=== PATIENT | female | born 1950 | race Caucasian/White ===

== ENCOUNTER → 2017-08-16 | Outpatient (CLI) | payer MEDICARE, BC ==
[~2017-08-16] MED LIST: ALLOPURINOL 10100 M1 PO; ASPIRIN81 M2 PO; CALCITRATE200 MG PO; DIOVAN 80 MG TA80 M1 PO; FARXIGA5 MG PO; GUMMI BEAR MUL1 EAC1 PO; LANTUS100 UNIT/M SUBQ; LEVOTHYROXINE0.05 MG PO; LIPITOR 20 MG T20 M1 PO; OMEGA-31000 M1; VITAMIN B-12500 MCG PO; VITAMIN D2000 UNIT PO; ZEMPLAR1 MCG PO
== END ==
LOC: M.RAD 08-06 12:22
DX: Z12.31 Encounter for screening mammogram for malignant neoplasm of breast (principal); Z13.820 Encounter for screening for osteoporosis; Z78.0 Asymptomatic menopausal state; E11.21 Type 2 diabetes mellitus with diabetic nephropathy; E11.319 Type 2 diabetes mellitus with unspecified diabetic retinopathy without macular edema; E11.49 Type 2 diabetes mellitus with other diabetic neurological complication; I89.0 Lymphedema, not elsewhere classified; I87.2 Venous insufficiency (chronic) (peripheral)

== ENCOUNTER → 2017-08-18 | Outpatient (CLI) | payer MEDICARE, BC | LOC: M.ULTRA 09:29 | DX: N63.10 Unspecified lump in the right breast, unspecified quadrant (principal); E11.21 Type 2 diabetes mellitus with diabetic nephropathy; E11.319 Type 2 diabetes mellitus with unspecified diabetic retinopathy without macular edema; E11.49 Type 2 diabetes mellitus with other diabetic neurological complication; I89.1 Lymphangitis; I87.2 Venous insufficiency (chronic) (peripheral); M10.9 Gout, unspecified ==

== ENCOUNTER → 2018-02-10 | Outpatient (CLI) | payer MEDICARE, BC | LOC: M.ULTRA 08:40 | DX: R92.8 Other abnormal and inconclusive findings on diagnostic imaging of breast (principal) ==

== ENCOUNTER → 2018-02-10 | Outpatient (CLI) | payer OTHER | LOC: M.CT 08:33 | DX: Z13.6 Encounter for screening for cardiovascular disorders (principal) ==

== ENCOUNTER → 2018-08-23 | Outpatient (CLI) | payer MEDICARE, BC | LOC: M.RAD 08:58 | DX: Z12.31 Encounter for screening mammogram for malignant neoplasm of breast (principal) ==

== ENCOUNTER 2020-06-13 13:12 | Inpatient (IN) | payer MEDICARE, BC ==
[~2020-06-13] VITALS: Ht 172.7 cm; Wt 158.8 kg
[~2020-06-13 13:12] MED LIST changes: +ASPIRIN EC81 M1 PO; -ASPIRIN81 M2 PO
[2020-06-13 13:15] VITALS: BP 168/93
[2020-06-13] MEDS ORDERED: BENICAR40 MG PO (13:27)
[2020-06-13] MEDS ORDERED: TOPROL XL50 MG (13:27)
[2020-06-13] MEDS ORDERED: ACTIVE-Q200 MG PO (13:28)
[2020-06-13 14:40] LABS: ABSOLUTE BASOPHILS 0.1 thou/uL (0.0-0.2); ABSOLUTE LYMPHOCYTES 1.1 thou/uL (0.8-5.3); ABSOLUTE MONOCYTES 1.5 thou/uL (0.0-1.2); ABSOLUTE NEUTROPHILS 10.3 thou/uL (1.6-8.1); BASOPHILS 0.7 %; EOSINOPHILS 0.1 %; HEMATOCRIT 42.4 % (37.0-47.0); HEMOGLOBIN 13.2 gm/dL (12.0-15.0); LYMPHOCYTES 8.5 %; MCH 28.1 pg (26.0-34.0); MCHC 31.3 g/dL (28.0-37.0); MCV 89.8 fL (80.0-100.0); MONOCYTES 11.3 %; MPV 8.7 fl. (7.2-11.1); NUCLEATED RBCS 0 /100WBC; PLATELET COUNT* 214 thou/uL (150-400); POLYS 79.4 %; RBC 4.72 mil/uL (4.20-5.00); RDW-CV 15.3 % (10.5-14.5)
[2020-06-13 14:46] LABS: INFLUENZA A ANTIGEN Negative (Negative); INFLUENZA B ANTIGEN Negative (Negative)
[2020-06-13 14:51] LABS: CALCIUM 8.9 mg/dL (8.5-10.1); CREATININE 1.4 mg/dL (0.6-1.3); POTASSIUM 5.2 mmol/L (3.5-5.1)
[2020-06-13 14:55] LABS: APTT 24.9 Seconds (25.0-31.3); INR 1.1; PROTIME 11.9 Seconds (9.20-11.50)
[2020-06-13 15:05] LABS: ALBUMIN 3.2 g/dL (3.4-5.0); CK-MB MASS 4.1 ng/mL (<0.5-3.6); MAGNESIUM 1.3 mg/dL (1.8-2.4); TOTAL BILIRUBIN 0.8 mg/dL (<0.1-1.0); TOTAL PROTEIN 8.3 g/dL (6.4-8.2)
[2020-06-13 16:44] LABS: CHOLESTEROL 148 mg/dL (<200); HDL CHOLESTEROL 59 mg/dL (>40); LDL CHOLESTEROL 80 mg/dL (<100); TC:HDL 2.5 Ratio (Not establshd); TRIGLYCERIDE 48 mg/dL (<150); VLDL 10 mg/dL (<40)
[2020-06-13 16:49] LABS: SERUM ASSESSMENT CLEAR
[2020-06-13 22:00] VITALS: BP 127/59
[2020-06-13 22:41] VITALS: BP 144/66
[2020-06-14] VITALS (10 sets, daily range): BP systolic 98–122; BP diastolic 42–68
[2020-06-14 04:48] LABS: HEMATOCRIT 41.4 % (37.0-47.0); HEMOGLOBIN 12.7 gm/dL (12.0-15.0); MCH 27.7 pg (26.0-34.0); MCHC 30.7 g/dL (28.0-37.0); MCV 90.3 fL (80.0-100.0); RBC 4.59 mil/uL (4.20-5.00); RDW-CV 15.5 % (10.5-14.5)
[2020-06-14 05:00] LABS: CALCIUM 9.2 mg/dL (8.5-10.1); CREATININE 1.6 mg/dL (0.6-1.3); POTASSIUM 4.8 mmol/L (3.5-5.1)
--- NOTE | 2020-06-14 10:58 | EKG ---
[place] [address] ELECTROCARDIOGRAM REPORT Name: ELIZABETH LYNN Room: [address] ADM IN M.R.#: [id number] Admission: 06/13/20 Attend Phys: Maria Isabel Miller, Discharge: Date of : 54 Date of Service: 06/13/20 1321 Report #: [id number] THIS REPORT FOR: //name// [facility] ED Test Date: 2020-06-13 Test Time: 13:21:36 Pat Name: ELIZABETH LYNN Department: Room: [facility] Gender: F Service Coordinator Elderly Facility: DSL : 1950 Requested By: Dudley Gilbert Order Number: [id number] MD: Wale Thomas Measurements Intervals [place] Rate: 114 P: ND: QRS: -17 QRSD: 76 T: 37 QT: 309 QTc: 426 Interpretive Statements Atrial fibrillation Borderline left axis deviation Low voltage, precordial leads Compared to ECG 11/07/2014 11:33:02 Low QRS voltage now present ST (T wave) deviation now present Sinus rhythm no longer present Electronically Signed On 06-14-2020 10:58:20 SKIVER MACHINE by Wale Thomas [email or web address] <ELECTRONICALLY SIGNED> By: Wale Thomas MD, FACC 06/14/20 1058 1321 1321 Wale Thomas MD, FACC /EPI
--- NOTE | 2020-06-14 16:54 | CARD ---
[address] [address] CARDIAC CATH REPORT Name: ELIZABETH LYNN Room: [address] IN [facility]#: [id number] Admission: 06/13/20 Attend Phys: Maria Isabel Miller MD Discharge: Date of : 54 Report #: [id number] THIS REPORT FOR: //name// cc: Lien Eagle MD, Diane S. MD ~ APPROVED REPORT Study performed: 06/14/2020 08:48:50 Patient Details Patient Status: In-Patient Room #: The patient is a 70 year-old female Event Personnel Sudheer Romero RTR Monitor, Zohreh Sanchez RTR William Mancini David Tie Hacker, Fouzia Massey desktop support consultant Performed Right radial artery access, Left Heart Cath w/or w/o Coronaries LHC, Hemostasis with Hemoband Indication Non-STEMI , Atrial fibrillation, Chest pain Risk Factors Obesity, Diabetes Admission/Lab Medications/Medications given during procedure Heparin Unfract., Heparin IV 3000 units, Nitroglycerin IA 400 mcg, Verapamil IA 5 mg Procedure Narrative The patient was brought electively to the Cardiac Catheterization Laboratory and was prepped and draped in a sterile manner. The right wrist was infiltrated with 2% Lidocaine subcutaneous anesthesia. A 6F Slender Delmar sheath was inserted into the right radial artery. Coronary angiography was performed using coronary diagnostic catheters. The right coronary system was accessed and visualized with a JR4 6Fr catheter. The left coronary system was accessed and visualized with a JL4 6Fr catheter. The left ventricle was accessed and visualized with a Angled Pigtail 6Fr catheter. Left ventricular/Aortic Valve gradient assessed via catheter pullback. Left ventriculogram was performed in ART projection. Closure device was deployed with a 6 Fr Vasc band. The patient tolerated the procedure well and there were no [place] [address] CARDIAC CATH REPORT Name: ELIZABETH LYNN Room: [address] IN [facility]#: [id number] Admission: 06/13/20 Attend Phys: Maria Isabel Miller MD Discharge: Date of : 54 Report #: [id number] procedure. There was no hematoma. Intraoperative Conscious Sedation Sedation start time: 09:47 Case end Time: 10:12 No sedation given. Fluoro Time: 3.9 minutes Dose: DAP 90927 cGycm2 957.90 mGy Contrast Type and Amount: Visipaque 100 ml Coronary Angiography The patient's coronary anatomy is co- dominant. [place] Artery Percent Stenosis Left Main: 0 % Prox LAD: 0 % Mid/Distal LAD: 0 % Circumflex: 0 % RCA: 30 % Ramus: % Left Ventriculography The left ventricular ejection fraction is estimated to be 40-45%. Left ventricular wall motion abnormalities are present. There is no mitral insufficiency. severe hypokinesis noted of the distal anterolateral wall and apex Hemodynamics The aortic pressure is 147/60 mmHg with a mean of 99 mmHg. The left ventricular pressure is 137/11 mmHg with a mean of mmHg. The left ventricular end diastolic pressure is 20 mmHg. There was no gradient across the aortic valve upon pullback. Pullback from the left ventricle to the aorta revealed no gradient across the aortic valve. Conclusion 1. nonsignificant CAD 2. 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
[2020-06-15 04:44] VITALS: BP 103/58
[2020-06-15 08:00] VITALS: BP 99/55
[2020-06-15 13:06] VITALS: BP 106/55
[2020-06-15 16:40] VITALS: BP 93/39
[2020-06-15 19:27] LABS: CALCIUM 8.9 mg/dL (8.5-10.1); CREATININE 2.2 mg/dL (0.6-1.3); POTASSIUM 4.4 mmol/L (3.5-5.1)
[2020-06-15 20:00] VITALS: BP 101/48
[2020-06-16] VITALS: BP 115/45
[2020-06-16 04:00] VITALS: BP 119/43
[2020-06-16 05:27] LABS: HEMATOCRIT 36.5 % (37.0-47.0); HEMOGLOBIN 11.1 gm/dL (12.0-15.0); MCH 27.3 pg (26.0-34.0); MCHC 30.3 g/dL (28.0-37.0); MCV 90.1 fL (80.0-100.0); MPV 9.4 fl. (7.2-11.1); RBC 4.05 mil/uL (4.20-5.00); RDW-CV 15.7 % (10.5-14.5)
[2020-06-16 05:45] LABS: ALBUMIN 2.5 g/dL (3.4-5.0); CALCIUM 8.6 mg/dL (8.5-10.1); CREATININE 2.3 mg/dL (0.6-1.3); MAGNESIUM 2.5 mg/dL (1.8-2.4); POTASSIUM 4.6 mmol/L (3.5-5.1); TOTAL BILIRUBIN 0.4 mg/dL (<0.1-1.0); TOTAL PROTEIN 7.1 g/dL (6.4-8.2)
[2020-06-16 08:00] VITALS: BP 105/54
[2020-06-16 13:31] VITALS: BP 88/40
--- NOTE | 2020-06-16 14:04 | EKG ---
[place] [address] ELECTROCARDIOGRAM REPORT Name: ELIZABETH LYNN Room: [address] IN M.R.#: [id number] Admission: 06/13/20 Attend Phys: Maria Isabel Miller, Discharge: Date of : 54 Date of Service: 06/15/20 0622 Report #: [id number] THIS REPORT FOR: //name// [facility] Test Date: 2020-06-15 Test Time: 06:22:15 Pat Name: ELIZABETH LYNN Department: Room: [address] Gender: F Assembler Watch Train: [email or web address] : 1950 Requested By: Wale Thomas Order Number: [id number] Ashley MD: Piero Corley Measurements Intervals [place] Rate: 72 P: WI: QRS: 11 QRSD: 102 T: 23 QT: 393 QTc: 431 Interpretive Statements Atrial fibrillation Low voltage, extremity and precordial leads Borderline ST elevation, lateral leads Compared to ECG 06/13/2020 13:21:36 ST (T wave) deviation now present Electronically Signed On 06-16-2020 14:03:57 WINDSURFING INSTRUCTOR by Piero Corley [email or web address] <ELECTRONICALLY SIGNED> By: Piero Corley MD, FACC 06/16/20 1403 1 Piero Corley MD, FAC /EPI
[2020-06-16 16:00] VITALS: BP 92/40
[2020-06-16 20:00] VITALS: BP 108/40
[2020-06-17] VITALS: BP 101/35
[2020-06-17 03:45] VITALS: BP 90/41
[2020-06-17 08:00] VITALS: BP 105/49
[2020-06-17 11:21] LABS: HEMATOCRIT 36.8 % (37.0-47.0); HEMOGLOBIN 11.5 gm/dL (12.0-15.0); MCH 28.3 pg (26.0-34.0); MCHC 31.4 g/dL (28.0-37.0); MPV 9.5 fl. (7.2-11.1); RBC 4.08 mil/uL (4.20-5.00); RDW-CV 15.6 % (10.5-14.5)
[2020-06-17 11:33] LABS: ALBUMIN 2.6 g/dL (3.4-5.0); CALCIUM 8.5 mg/dL (8.5-10.1); CREATININE 2.7 mg/dL (0.6-1.3); MAGNESIUM 2.5 mg/dL (1.8-2.4); POTASSIUM 4.8 mmol/L (3.5-5.1); TOTAL BILIRUBIN 0.4 mg/dL (<0.1-1.0); TOTAL PROTEIN 7.4 g/dL (6.4-8.2)
[2020-06-17] MEDS ORDERED: ELIQUIS5 MG PO (11:41)
[2020-06-17 12:00] VITALS: BP 88/32
--- NOTE | 2020-06-17 14:46 | 2DMMODE ---
[place] [address] 2 D/M-MODE ECHOCARDIOGRAM Name: ELIZABETH LYNN Room: [address] IN [facility]#: [id number] Admission: 06/13/20 Attend Phys: Maria Isabel Miller, Discharge: Date of : 54 Date of Service: 06/17/20 1445 Report #: [id number] THIS REPORT FOR: cc: Lien Eagle MD, Diane S. MD Holkins,Omid Whitt MD [facility] ~ APPROVED REPORT Study performed: 06/17/2020 09:58:20 EXAM: Comprehensive 2D, Doppler, and color-flow Echocardiogram Patient Location: In-Patient Room #: [facility] Status: routine BSA: 2.67 HR: 87 bpm BP: 90/41 mmHg Rhythm: Atrial Fibrillation Other Information Study Quality: Good Indications Atrial Fibrillation Non STEMI 2D Dimensions IVSd: 11.12 (7-11mm) LVOT Diam: 19.99 (18-24mm) LVDd: 54.93 mm PWd: 10.94 (7-11mm) Ascending Ao: 33.28 (22-36mm) LVDs: 28.70 (25-40mm) Aortic Root: 28.89 mm Volumes Left Atrial Volume (Systole) LA ESV Index: 30.80 mL/m2 Aortic Valve AoV Peak Saji.: 1.53 m/s AO Peak Gr.: 9.41 mmHg LVOT Max P.19 mmHg AO Mean Gr.: 5.12 mmHg LVOT Mean P.98 mmHg LVOT Max V: 1.14 m/s AO V2 VTI: 33.22 cm LVOT Mean V: 0.81 m/s DANELLE (VTI): 2.57 cm2 LVOT V1 VTI: 27.19 [place] [address] 2 D/M-MODE ECHOCARDIOGRAM Name: ELIZABETH LYNN Room: [address] IN ..#: [id number] Admission: 06/13/20 Attend Phys: Maria Isabel Miller, Discharge: Date of : 54 Date of Service: 06/17/20 1445 Report #: [id number] Mitral Valve MV Decel. Time: 192.64 ms MV PHT: 55.86 ms MVA (PHT): 3.94 cm2 TDI Medial E' Saji.: 0.12 m/s Lateral E' Saji.: 0.14 m/s Pulmonary Valve PV Peak Saji.: 1.12 m/s PV Peak Gr.: 5.00 mmHg Tricuspid Valve RAP Estimate: 5.00 mmHg TR Peak Gr.: 38.35 mmHg RVSP: 43.00 mmHg PA Pressure: 43.00 mmHg Left Ventricle The left ventricle is normal size. There is normal LV segmental wall motion. There is normal left ventricular wall thickness. Left ventricular systolic function is normal. The left ventricular ejection fraction is within the normal range. LVEF is 55-60%. This study is not technically sufficient to allow evaluation of the LV diastolic function due to atrial fibrillation. Right Ventricle The right ventricle is normal size. The right ventricular systolic function is normal. Atria The left atrium size is normal. The right atrium size is normal. Aortic Valve The aortic valve is normal in structure. No aortic regurgitation is present. There is no aortic valvular stenosis. Mitral Valve Mild mitral annular calcification. Trace mitral regurgitation. No evidence of mitral valve stenosis. Tricuspid Valve The tricuspid valve is normal in structure. Mild tricuspid regurgitation [place] [address] 2 D/M-MODE ECHOCARDIOGRAM Name: ELIZABETH LYNN Room: [address]#: [id number] Admission: 06/13/20 Attend Phys: Maria Isabel Miller, Discharge: Date of : 54 Date of Service: 06/17/20 1445 Report #: [id number] Pulmonic Valve The pulmonary valve is normal in structure. Mild pulmonic regurgitation. Great Vessels The aortic root is normal in size. IVC is normal in size and collapses >50% with inspiration. Pericardium There is no pericardial effusion. <Conclusion> There is normal left ventricular wall thickness. Left ventricular systolic function is normal. The left ventricular ejection fraction is within the normal range. LVEF is 55-60%. This study is not technically sufficient to allow evaluation of the LV diastolic function due to atrial fibrillation. The right ventricle is normal size. The left atrium size is normal. The aortic valve is normal in structure. Mild mitral annular calcification. The tricuspid valve is normal in structure. Mild tricuspid regurgitation Mild pulmonary hypertension. IVC is normal in size and collapses >50% with inspiration. There is no pericardial effusion. There is normal LV segmental wall motion. <ELECTRONICALLY SIGNED> By: Omid Celis MD, FACC 06/17/20 1445 1445 1445 Omid Celis MD, FACC /INF
[2020-06-17 16:00] VITALS: BP 87/52
[2020-06-17 20:00] VITALS: BP 97/49
[2020-06-18] VITALS (7 sets, daily range): BP systolic 80–109; BP diastolic 24–54
[2020-06-18 04:40] LABS: ABSOLUTE BASOPHILS 0.1 thou/uL (0.0-0.2); ABSOLUTE EOSINOPHILS 0.3 thou/uL (0.0-0.7); ABSOLUTE LYMPHOCYTES 1.5 thou/uL (0.8-5.3); ABSOLUTE NEUTROPHILS 4.4 thou/uL (1.6-8.1); BASOPHILS 0.8 %; EOSINOPHILS 3.5 %; HEMATOCRIT 36.7 % (37.0-47.0); HEMOGLOBIN 11.2 gm/dL (12.0-15.0); LYMPHOCYTES 20.5 %; MCH 27.5 pg (26.0-34.0); MCHC 30.5 g/dL (28.0-37.0); MCV 89.9 fL (80.0-100.0); MONOCYTES 13.9 %; MPV 9.1 fl. (7.2-11.1); NUCLEATED RBCS 0 /100WBC; PLATELET COUNT* 214 thou/uL (150-400); POLYS 61.3 %; RBC 4.09 mil/uL (4.20-5.00); RDW-CV 15.6 % (10.5-14.5); WBC 7.2 thou/uL (4.0-11.0)
[2020-06-18 04:47] LABS: ALBUMIN 2.7 g/dL (3.4-5.0); CALCIUM 8.9 mg/dL (8.5-10.1); CREATININE 2.7 mg/dL (0.6-1.3); POTASSIUM 4.5 mmol/L (3.5-5.1); TOTAL BILIRUBIN 0.4 mg/dL (<0.1-1.0); TOTAL PROTEIN 7.2 g/dL (6.4-8.2)
--- NOTE | 2020-06-18 08:51 | CON ---
[address] [address] CONSULTATION Name: ELIZABETH LYNN Room: [address] IN .R.#: [id number] Admission: 06/13/20 Attend Phys: Maria Isabel Miller MD Discharge: Date of : 54 Report #: [id number] THIS REPORT FOR: //name// cc: Lien Eagle MD, Diane S. MD ~ CARDIOLOGY CONSULTATION INDICATION: Non-ST elevation myocardial infarction and atrial fibrillation. HISTORY OF PRESENT ILLNESS: The patient is a 70-year-old white female who was admitted to the hospital with complaints of chest discomfort that was fairly focal to the left substernal area, lasting several hours, early this morning. The pain has essentially resolved, although she has some residual numbness in the area. She had some shortness of breath with the episode. She states that it hurt worse to take a deep breath. There was no diaphoresis or nausea. There was no radiation of the discomfort. A 12-lead EKG shows atrial fibrillation with a rapid ventricular response rate. I do not appreciate acute ST segment abnormalities. She has no history of coronary artery disease or prior significant cardiac issues. She has chronic lower extremity lymphedema. There is no history of atrial fibrillation. PAST MEDICAL HISTORY: 1. Type 2 diabetes mellitus. 2. Hypertension. 3. Chronic lower extremity lymphedema. 4. Chronic renal insufficiency. HOME MEDICATIONS: Lantus dose unknown daily, atorvastatin 20 mg at bedtime, allopurinol 100 mg daily, vitamin B12 500 mcg daily, aspirin 81 mg daily, Benicar 40 mg daily, Toprol-XL 50 mg b.i.d., CoQ10 200 mg daily, calcium citrate 200 mg daily, vitamin D3 2000 units daily, omega 3 fatty acids 1000 mg daily, multivitamin 1 tablet daily. ALLERGIES: None documented. SOCIAL HISTORY: The patient does not smoke. She does not drink alcohol. FAMILY HISTORY: Noncontributory. REVIEW OF SYSTEMS: As per HPI, otherwise, unremarkable. PHYSICAL EXAMINATION: VITAL SIGNS: Blood pressure 168/93, pulse is irregular and in the low 100s. GENERAL: This is a moderately obese, pleasant white female, in no distress[place] [address] CONSULTATION Name: RUEL DAELIZABETH Deena Room: [address] IN [facility]#: [id number] Admission: 06/13/20 Attend Phys: Maria Isabel Miller MD Discharge: Date of : 54 Report #: [id number] HEENT: Extraocular muscles intact. Mucous membranes are moist. NECK: Shows a thick neck without obvious jugular venous distention. CARDIAC: Reveals an irregularly irregular rhythm that is mildly tachycardic. I do not appreciate gallop or murmur. ABDOMEN: Reveals normal bowel sounds. The abdomen is soft and nontender. EXTREMITIES: Shows 4+ edema bilaterally consistent with lymphedema. LABORATORY DATA: Reviewed. Sodium 140, potassium 5.2, chloride 105, bicarbonate 28, BUN 30, creatinine 1.4, serum glucose 183. LFTs are within normal limits with the exception of a minimally elevated alkaline phosphatase at 138. Initial troponin was 4.86. Followup troponins are pending. NT-proBNP is mildly elevated at 2532. Coags are essentially within normal limits. White blood cell count 13, hemoglobin 13.2, platelet count 214,000. Rapid COVID test negative. Chest x-ray showed no acute cardiopulmonary abnormality. IMPRESSION AND RECOMMENDATIONS: 1. Atrial fibrillation, onset unknown. The patient does not have any symptoms with this. She is presently on a heparin drip. We will transition to oral anticoagulation. Would be in favor of starting antiarrhythmic in an effort to convert to sinus if possible. Echocardiogram will be ordered and is pending. 2. Moderately elevated troponin consistent with non-ST elevation myocardial infarction. We will plan for left heart catheterization with coronary angiography. Holding anticoagulation until this is achieved, 3. Hypertension. We will adjust the patient's home medications and consider additional medications as needed. 4. Diabetes, per primary physician. 5. Chronic renal insufficiency, appears stable at this point in time. 6. Lymphedema. The patient treats with compression devices at home on a daily basis. <ELECTRONICALLY SIGNED> By: Piero Corley MD, FACC 06/18/20 0851 1621 1642[facility] Corley MD, FACC /nt
--- NOTE | 2020-06-18 12:05 | CON ---
[address] [address] CONSULTATION Name: ELIZABETH LYNN Room: [address] IN .R.#: [id number] Admission: 06/13/20 Attend Phys: Maria Isabel Miller MD Discharge: Date of : 54 Report #: [id number] THIS REPORT FOR: //name// cc: Lien Eagle MD, Diane S. MD ~ DATE OF SERVICE: 06/17/2020 REQUESTING PHYSICIAN: Dr. Valenzuela. REASON FOR CONSULTATION: Acute kidney injury. HISTORY OF PRESENT ILLNESS: The patient is a 70-year-old female with medical history significant for chronic kidney disease stage 3, follows with my partner, Dr. Szymanski, she also has morbid obesity, hypertension, coronary artery disease, atrial fibrillation and diabetes. She was admitted on 06/13/2020 with chest pain, underwent cardiac catheterization on 06/13/2020. She had a nonsignificant coronary artery disease and from the cardiac standpoint, she was doing better. Her creatinine went up from 1.4-2.7 today and I was consulted. SOCIAL HISTORY: No tobacco or alcohol abuse. FAMILY HISTORY: Noncontributory. MEDICATIONS: Reviewed. REVIEW OF SYSTEMS: She feels good today and she wanted to go home and disappointed that she has to stay in the hospital. PHYSICAL EXAMINATION: GENERAL: Awake, alert, oriented. VITAL SIGNS: Blood pressure 105/49, heart rate 68, and temperature is 36.3. HEENT: Pupils are round. NECK: Fatty. LUNGS: Decreased air movements. CARDIOVASCULAR: Irregular rate. ABDOMEN: Obese. EXTREMITIES: Lower extremities with chronic lymphedema bilaterally. ASSESSMENT: 1. Acute kidney injury, combination of exposure to contrast, although contrast was a very minimal amount and the patient is actually hypotensive. She used to have a blood pressure above 140 and blood pressure around 100 is too low for her. 2. Coronary artery disease, status post ltj-MX-elbjvolyw myocardial infarction. 3. Morbid obesity. 4. [place] [address] CONSULTATION Name: ELIZABETH LYNN Room: [address] IN ..#: [id number] Admission: 06/13/20 Attend Phys: Maria Isabel Miller MD Discharge: Date of : 54 Report #: [id number] 5. History of hypertension. 6. ____. 7. Atrial fibrillation. 8. Diabetes mellitus type 2. PLAN: Discussed with Dr. Corley, scrap kettle tender. I would like to keep her blood pressure a little higher ____ for her will be somewhere around 130 mmHg over 80. We will follow labs. <ELECTRONICALLY SIGNED> By: Ronnie Templeton MD 06/18/20 1205 1234 0004Alexaalan Templeton MD /SONNY
[2020-06-19] VITALS (9 sets, daily range): BP systolic 80–128; BP diastolic 37–70
[2020-06-19 05:19] LABS: ALBUMIN 2.6 g/dL (3.4-5.0); CALCIUM 8.7 mg/dL (8.5-10.1); CREATININE 2.4 mg/dL (0.6-1.3); POTASSIUM 4.6 mmol/L (3.5-5.1); TOTAL BILIRUBIN 0.3 mg/dL (<0.1-1.0); TOTAL PROTEIN 7.2 g/dL (6.4-8.2)
[2020-06-19] MEDS ORDERED: PACERONE 200 M200 M1 PO ×2 (17:15→17:25)
[2020-06-20] VITALS (8 sets, daily range): BP systolic 99–119; BP diastolic 42–68
[2020-06-20 09:46] LABS: CALCIUM 8.5 mg/dL (8.5-10.1); CREATININE 1.9 mg/dL (0.6-1.3); POTASSIUM 5.1 mmol/L (3.5-5.1)
[2020-06-20] MEDS ORDERED: PACERONE 200 M200 M1 PO (11:44)
== END 2020-06-20 16:10 | disposition home health service (06) | DRG 280 ==
LOC: M.ERS 13:12 → M.2W 15:31 → M.TBA-ER 15:31 → M.2W 21:46
PROVIDERS: Family Medicine; Internal Medicine; Internal Medicine Cardiovascular Disease; Internal Medicine Nephrology; ADMIT Internal Medicine; ATTEND Internal Medicine
PROC: B215YZZ Fluoroscopy of Left Heart using Other Contrast (ICD-10-PCS; principal; 2020-06-14)
PROC: 4A023N7 Measurement of Cardiac Sampling and Pressure, Left Heart, Percutaneous Approach (ICD-10-PCS; principal; 2020-06-14)
PROC: B211YZZ Fluoroscopy of Multiple Coronary Arteries using Other Contrast (ICD-10-PCS; principal; 2020-06-14)
DX: I21.4 Non-ST elevation (NSTEMI) myocardial infarction (principal); J15.6 Pneumonia due to other Gram-negative bacteria; N17.0 Acute kidney failure with tubular necrosis; I50.21 Acute systolic (congestive) heart failure; J96.01 Acute respiratory failure with hypoxia; Z68.43 Body mass index [BMI] 50.0-59.9, adult; I13.0 Hypertensive heart and chronic kidney disease with heart failure and stage 1 through stage 4 chronic kidney disease, or unspecified chronic kidney disease; Z20.828 Contact with and (suspected) exposure to other viral communicable diseases; M19.90 Unspecified osteoarthritis, unspecified site; N18.30 Chronic kidney disease, stage 3 unspecified; E78.5 Hyperlipidemia, unspecified; I48.91 Unspecified atrial fibrillation; E11.22 Type 2 diabetes mellitus with diabetic chronic kidney disease; I89.0 Lymphedema, not elsewhere classified; I25.10 Atherosclerotic heart disease of native coronary artery without angina pectoris; E66.01 Morbid (severe) obesity due to excess calories; I87.8 Other specified disorders of veins; I95.9 Hypotension, unspecified; T50.8X5A Adverse effect of diagnostic agents, initial encounter; Y92.89 Other specified places as the place of occurrence of the external cause; Z79.899 Other long term (current) drug therapy

== ENCOUNTER → 2020-07-30 | Outpatient (CLI) | payer MEDICARE, BC ==
[2020-07-30] VITALS (7 sets, daily range): BP systolic 121–157; BP diastolic 48–77
[~2020-07-30] MED LIST changes: +ACTIVE-Q200 MG PO; +BENICAR40 MG PO; +ELIQUIS5 MG PO; +PACERONE 200 M200 M1 PO; +TOPROL XL50 MG
[2020-07-30 11:29] LABS: HEMATOCRIT 38.7 % (37.0-47.0); HEMOGLOBIN 12.1 gm/dL (12.0-15.0); MCH 28.1 pg (26.0-34.0); MCHC 31.1 g/dL (28.0-37.0); MCV 90.1 fL (80.0-100.0); MPV 9.6 fl. (7.2-11.1); RBC 4.3 mil/uL (4.20-5.00); RDW-CV 18.5 % (10.5-14.5); WBC 5.9 thou/uL (4.0-11.0)
[2020-07-30 11:54] LABS: CREATININE 1.4 mg/dL (0.6-1.3)
[2020-07-30 11:59] LABS: ALBUMIN 3.4 g/dL (3.4-5.0); TOTAL BILIRUBIN 0.8 mg/dL (<0.1-1.0); TOTAL PROTEIN 7.4 g/dL (6.4-8.2)
--- NOTE | 2020-07-30 15:22 | EKG ---
[place] [address] ELECTROCARDIOGRAM REPORT Name: ELIZABETH LYNN Room: [facility]#: [id number] Admission: 07/30/20 Attend Phys: Piero Corley, Discharge: Date of : 54 Date of Service: 07/30/20 1105 Report #: [id number] THIS REPORT FOR: //name// [facility] Test Date: 2020-07-30 Test Time: 11:05:56 Pat Name: ELIZABETH LYNN Department: Room: Gender: F Woodwind Instruments Inspector: : 1950 Requested By: Piero Corley Order Number: [id number] Ashley MD: Wale Thomas Measurements Intervals [place] Rate: 77 P: IN: QRS: -6 QRSD: 117 T: 36 QT: 379 QTc: 429 Interpretive Statements Atrial fibrillation Nonspecific intraventricular conduction delay Low voltage, precordial leads Compared to ECG 06/15/2020 06:22:15 ST (T wave) deviation no longer present Electronically Signed On 07-30-2020 15:22:11 SORTER UPHOLSTERY PARTS by Wale Thomas [email or web address] <ELECTRONICALLY SIGNED> By: Wale Thomas MD, [facility] 07/30/20 1522 1105 1105 Wale Thomas MD, [facility] /EPI
--- NOTE | 2020-07-31 10:15 | CARD ---
[address] [address] CARDIAC CATH REPORT Name: LYNNELIZABETH Shaffer Room: [facility]#: [id number] Admission: 07/30/20 Attend Phys: Piero Corley MD Discharge: Date of : 54 Report #: [id number] THIS REPORT FOR: cc: Lien Eagle MD, Diane S. MD ~ Piero Corley MD [facility] DATE OF SERVICE: 07/30/2020 PROCEDURE: DC cardioversion. INDICATION: Persistent atrial fibrillation. DESCRIPTION OF PROCEDURE: After informed consent was obtained, the patient was brought to the cardiac holding area. The patient was given intravenous Versed and fentanyl for conscious sedation. The patient received a total of 4 mg of Versed and 100 mg of fentanyl. Once the patient was adequately sedated, she received a single biphasic shock of 300 joules, which failed to convert her from atrial fibrillation. She remains in atrial fibrillation. She received a second biphasic shock of 360 joules converting from atrial fibrillation to normal sinus rhythm. The patient tolerated the procedure well without complication. She was discharged to home in stable condition. IMPRESSION: 1. Persistent atrial fibrillation. 2. Successful direct current cardioversion to normal sinus rhythm. <ELECTRONICALLY SIGNED> By: Piero Corley MD, [facility] 07/31/20 [address] [place] [address] Demi Corley MD, FACC /nt
== END | disposition home or self-care (01) ==
LOC: M.CL 10:20
PROVIDERS: ATTEND Internal Medicine Cardiovascular Disease
DX: I48.19 Other persistent atrial fibrillation (principal); I25.2 Old myocardial infarction; Z98.890 Other specified postprocedural states; Z79.899 Other long term (current) drug therapy; Z79.01 Long term (current) use of anticoagulants

== ENCOUNTER 2020-08-12 14:40 | Inpatient (IN) | payer MEDICARE, BC ==
[~2020-08-12] VITALS: Ht 172.7 cm; Wt 170.6 kg
[2020-08-12 14:53] VITALS: BP 132/39
[2020-08-12] MEDS ORDERED: SPIRONOLACTONE50 MG PO (14:58)
[2020-08-12 15:29] LABS: CALCIUM 9.7 mg/dL (8.5-10.1); CREATININE 1.6 mg/dL (0.6-1.3); POTASSIUM 5.2 mmol/L (3.5-5.1)
[2020-08-12 15:30] LABS: ABSOLUTE BASOPHILS 0.1 thou/uL (0.0-0.2); ABSOLUTE EOSINOPHILS 0.2 thou/uL (0.0-0.7); ABSOLUTE LYMPHOCYTES 1.2 thou/uL (0.8-5.3); ABSOLUTE MONOCYTES 0.7 thou/uL (0.0-1.2); ABSOLUTE NEUTROPHILS 3.2 thou/uL (1.6-8.1); BASOPHILS 1.3 %; EOSINOPHILS 3.4 %; HEMATOCRIT 38.2 % (37.0-47.0); HEMOGLOBIN 11.9 gm/dL (12.0-15.0); LYMPHOCYTES 22.1 %; MCH 27.9 pg (26.0-34.0); MCV 89.9 fL (80.0-100.0); MONOCYTES 12.9 %; MPV 9.7 fl. (7.2-11.1); NUCLEATED RBCS 0 /100WBC; PLATELET COUNT* 196 thou/uL (150-400); POLYS 60.3 %; RBC 4.25 mil/uL (4.20-5.00); RDW-CV 18.6 % (10.5-14.5); WBC 5.3 thou/uL (4.0-11.0)
[2020-08-12 15:32] LABS: APTT 29.3 Seconds (25.0-31.3); INR 1.2; PROTIME 12.5 Seconds (9.20-11.50)
[2020-08-12 15:40] LABS: ALBUMIN 3.3 g/dL (3.4-5.0); TOTAL BILIRUBIN 0.7 mg/dL (<0.1-1.0); TOTAL PROTEIN 7.6 g/dL (6.4-8.2)
--- NOTE | 2020-08-12 17:01 | EKG ---
[place] [address] ELECTROCARDIOGRAM REPORT Name: ELIZABETH LYNN Room: [place] [address] ADM IN ..#: [id number] Admission: 08/12/20 Attend Phys: Bishop Glez Discharge: Date of : 54 Date of Service: 08/12/20 1453 Report #: [id number] THIS REPORT FOR: //name// [facility] ED Test Date: 2020-08-12 Test Time: 14:53:07 Pat Name: ELIZABETH LYNN Department: Room: [facility] Gender: F Port Engineer: CALIN : 1950 Requested By: Dudley Gilbert Order Number: [id number] MD: Wale Thomas Measurements Intervals [place] Rate: 57 P: 114 WI: 173 QRS: 83 QRSD: 102 T: 40 QT: 406 QTc: 396 Interpretive Statements Sinus bradycardia Low voltage with right axis deviation Compared to ECG 07/30/2020 11:05:56 Right-axis deviation now present Atrial fibrillation no longer present Electronically Signed On 08-12-2020 17:01:02 AWNING FRAME MAKER by Wale Thomas [email or web address] <ELECTRONICALLY SIGNED> By: Wale Thomas MD, [facility] 08/12/20 1701 1453 1453 Wale Thomas MD, [facility] /EPI
[2020-08-12 20:00] VITALS: BP 118/51
[2020-08-13] VITALS (7 sets, daily range): BP systolic 105–186; BP diastolic 43–65
--- NOTE | 2020-08-13 09:44 | NUR ---
CM SPOKE TO THE PT TO DISCUSS CM ASSESSMENT. PT A&O, AND INDEPNDENT WITH ADL'S. PT RESIDES AT HOME WITH HER DTR AND MARILEE. PT USES A CANE FOR MOBILITY. NO OTHER DME. PT IS CURRENTLY ON 3L O2, AND IS CONCERNED THAT SHE MAY NEED OXYGEN AT D/C. PT CURRENTLY ON-SERIVCE WITH SPECIALIZED HOME [facility]ARE (NURSE ONLY), AND PT WILL NEED ORDERS TO RESUME HH AT D/C. CM WILL REMAIN AVAILABLE TO ASSIST AND FOLLOW NEEDED. [facility] PHONE: [phone] FAX: [phone]
[2020-08-13] MEDS ORDERED: NOVOLOG100 UNIT/1 SUBQ (11:21)
--- NOTE | 2020-08-13 14:14 | NUR ---
WOUND NURSE: PATIENT SEEN TO ADDRESS LYMPHEDEMA TO BLE AND BULLA ON LLE MEASURING 3.0 X 4.0 CM. BULLA IS INTACT AND CLEAR FLUID FILLED. PATIENT ALSO WITH NODULAR ERUPTIONS ON BLE, MORE SO ON THE LEFT, AND LOCALIZED REDNESS, NO WARMTH. CLEANSED WIH SOAP AND WATER, RINSED WITH WATER, THEN PATTED DRY. APPLIED XEROFORM GAUZE UNDER 4X4'S, THEN WRAPPED WITH KERLEX ROLL GAUZE UNDER DOMINGO WRAP. PATIENT INSTRUCTED ON MEASURES TO PROMOTE HEALING AND PREVENT COMPLICATIONS WITH GOOD UNDERSTANDING ACHIEVED. PATIENT RECEIVED BED BATH AFTER LEAKAGE FROM PURE WICK. PATIENT NEEDS ASSISTANCE WITH REPOSITIONING. APPLIED MOISTURE BARRIER OINTMENT TO BUTTOCKS FOR PROTECTION. PATIENT REPORTS SHE HAS LYMPHEDEMA PUMPS AVAILABLE AT HOME AND DAUGHTER TO BRING THEM FOR PATIENT USE.
--- NOTE | 2020-08-13 18:22 | NUR ---
PT ADMITTED TO ROOM 227 AT APPROX 0820, REPORT RECEIVED FROM TESS ANAND. PT BEING TURNED Q2H, LYMPHEDEMA AND BLISTERS NOTED TO BLE'S AND YEAST UNDER STOMACH FOLDS AND LT BREAST, PICS IN CHART AND DR CRUZ NOTIFIED, NYSTATIN POWDER ORDER RECEIVED. PT HAS PUREWIC IN PLACE, ADMISSION ASSESSMENT AND HX COMPLETED CHARTED. PT ORIENTED TO ROOM AND CALL LIGHT. PT AOX4, NO C/O PAIN BUT DOES GET SHORT OF BREATH WHEN MOVING AROUND IN BED. PT GOAL IS TO REMAIN FREE FROM SKIN BREAKDOWN. PT WORKED W/ WOUND CARE TODAY. MEDS PER MAR, HOURLY ROUNDING OBSERVED, FALL PRECAUTIONS IN PLACE, CALL LIGHT W/IN REACH.
[2020-08-14] VITALS (7 sets, daily range): BP systolic 100–154; BP diastolic 40–58
[2020-08-14 04:58] LABS: CALCIUM 9.3 mg/dL (8.5-10.1); CREATININE 1.8 mg/dL (0.6-1.3); POTASSIUM 5.7 mmol/L (3.5-5.1)
--- NOTE | 2020-08-14 05:24 | NUR ---
ASSUMED PT CARE AT APPROX. 1945. PT IS A/OX4. VSS. PT IS ON TELE MONITOR AND IS SR WITH INTERMITTENT BRADYCARDIA. PT IS ASYMPTOMATIC. PT IS ON O2 VIA NC AT 2L/MIN. PT DENIES SOA EXCEPT WITH ACTIVITY. PT HAS A RFA 20G SL IV. PT IS AN ACCUCHECK ACHS/SLIDING SCALE. PT HAS A LIMB ALERT ON LUE R/T AV FISTULA PLACEMENT. PT REPORTED FISTULA HAS NEVER BEEN ACCESSED FOR HD TX. PT HAS A PURWICK IN PLACE R/T IMMOBILITY. PT IS BEING REPOSITIONED Q2H. PT PREFERS LYING SUPINE BUT ENCOURGED TO LAY ON SIDE EVERY TWO HOURS. PT HAS LARGE SKIN FOLDS, INTERDRY MOISTURE WICKING FABRIC PLACED TO HELP ABSORB EXCESS MOISTURE. PT HAS NYSTATIN ORDERED. PT'S LABS REVIEWED THIS AM. K+ 5.7, NA+148, BUN 58, CREATNINE 1.8, CL 113. RN WILL NOTIFY DAY SHIFT OF ELEVATED LAB VALUES. FALL PRECAUTIONS IN PLACE. CALL LIGHT WITHIN REACH. PT IS CURRENTLY RESTING AND NO C/O VOICED.
--- NOTE | 2020-08-14 11:14 | NUR ---
CM INFORMED DURING PRIME ROUNDING OF THE PLAN OF CARE FOR THE PT. PLAN FOR PT TO POSSIBLY D/C TOMORROW. PT REMAINS ON IV LASIX PLAN FOR PT TO INCREASE HER ACTIVITY TODAY. PT HAD HH PRIOR TO ADMIT AND WILL NEED TO RESUME HH WITH SPECIALIZED HOME CARE AT D/C. PT MAY ALSO NEED HOME OXYGEN AT D/C AND WILL NEED R.T. TESTING REST AND EXERCISE. CM WILL REMAIN AVAILABLE TO ASSIST AND FOLLOW NEEDED.
--- NOTE | 2020-08-14 12:25 | CON ---
[address] [address] CONSULTATION Name: ELIZABETH LYNN Room: [place] [address] ADM IN M.R.#: [id number] Admission: 08/12/20 Attend Phys: Burt Davenport Discharge: Date of : 54 Report #: [id number] THIS REPORT FOR: cc: Lien Eagle MD, Diane S. MD ~ Wale Thomas MD [facility] DATE OF SERVICE: 08/12/2020 CARDIOLOGY CONSULTATION PRIMARY CARE PHYSICIAN: Lien Eagle MD HISTORY OF PRESENT ILLNESS: The patient is a 70-year-old single white female whom I was asked to see in the Emergency Room today after she complained of shortness of breath. The patient is not very active at this time and uses a walker. She apparently had a heart catheterization in June that showed no significant coronary artery disease. She was found to be in atrial fibrillation and Dr. Corley performed cardioversion 2 weeks ago here at [facility] and she was placed on amiodarone and anticoagulant, Eliquis. However, since her discharge, she had increasing shortness of breath and edema. She finally came to the Emergency Room today and was admitted. She denied any fever or cough. She awakened at night short of breath. She checked her oxygen saturation at home and is only 85%. She denied any recent chest pain. She does note occasional episodes where heart rate will increase, but she has had no syncope or bleeding. PAST MEDICAL HISTORY: Significant for previous toe amputation following an infection, cataract extraction. She has a history of hypertension, diabetes, and hyperlipidemia. CURRENT MEDICATIONS: Include Lipitor, Eliquis, amiodarone, insulin. FAMILY HISTORY: Her brother had a heart attack. SOCIAL HISTORY: She is , lives with daughter here in [place]. No smoking or alcohol abuse. REVIEW OF SYSTEMS: She is overweight, being 5 feet 8 inches, 350 pounds. She has a history of sleep apnea, but cannot tolerate CPAP. No history of stroke, asthma, or liver disease. She has had kidney stones in the past. She has chronic kidney disease, followed by Nephrology. No cancer. No psychiatric illness. She has a history of lymphedema and went [facility] [place] [address] CONSULTATION Name: ELIZABETH LYNN Room: [address] IN [facility]#: [id number] Admission: 08/12/20 Attend Phys: Burt Davenport Discharge: Date of : 54 Report #: [id number] PHYSICAL EXAMINATION: GENERAL: Revealed an obese elderly female, lying in bed. She appeared in no acute distress. VITAL SIGNS: Her blood pressure is 110/60, pulse 70, she is afebrile. HEENT: She was anicteric. Conjunctivae pink. Mucous membranes are moist. NECK: Veins cannot be assessed due to obesity. No carotid bruits. CHEST: No expiratory wheezes. CARDIAC: Regular rate and rhythm. No significant murmur. ABDOMEN: Obese. EXTREMITIES: Had lymphedema changes. There was mild pitting edema. Dorsalis pedis pulse cannot be palpated. RADIOLOGICAL DATA: Her ECG showed a sinus rhythm with no QT prolongation. Her workup; she actually had an echocardiogram done in June that showed ejection fraction of 60%, no significant valvular abnormalities. She actually had a nuclear stress test in 2017 because of atrial fibrillation that showed 68% ejection fraction, no evidence of ischemia. Again, her cardioversion was done a week ago by Dr. Corley when she successfully converted from atrial fibrillation to sinus rhythm. 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 Her chest x-ray today showed mild pulmonary edema. LABORATORY WORK: She had lab work; sodium 149, potassium 5.2, BUN 47, creatinine 1.6, it was actually 2.7 in June. Her liver function studies were normal. BNP 1064. Troponin 0.06. T4 is 1.3. White blood cell count 4.2, hemoglobin 11.9. IMPRESSION AND RECOMMENDATIONS: 1. Recent cardioversion of atrial fibrillation. The patient is in sinus rhythm, on amiodarone. I would continue chronic anticoagulation with Eliquis. 2. Shortness of breath, suspect secondary to diastolic dysfunction. Recommend Lasix. 3. Diabetes. 4. Hyperlipidemia. The patient is on a statin drug. 5. Sleep apnea. The patient cannot tolerate CPAP. 6. Chronic kidney disease. The patient is followed by Nephrology. <ELECTRONICALLY SIGNED> By: Wale Thomas MD, FACC 08/14/20 1225 1621 2037Daviburt Thomas MD, FACC /nt
--- NOTE | 2020-08-14 12:54 | NUR ---
Cardiac Rehab: The patient states she does not have any questions over the heart failure education she was given yesterday.
[2020-08-14 13:29] LABS: CALCIUM 9.6 mg/dL (8.5-10.1); CREATININE 1.9 mg/dL (0.6-1.3); POTASSIUM 5.3 mmol/L (3.5-5.1)
--- NOTE | 2020-08-14 18:55 | NUR ---
ASSUMED PT CARE AT 0730, PT AOX4, NO C/O PAIN OR SHORTNESS OF BREATH. PT WORKED W/ DR AND ENCOURAGED TO GET UP TODAY. PT GOT UP TO CHAIR AND MEDS ORDERED TO BRING K+ DOWN. PT UP TO BATHROOM AND CHAIR MULTIPLE TIMES THROUGHOUT REST OF SHIFT. PT DAUGHTER IN ROOM AND UPDATED ON POC. PT GOAL IS TO BRING POTASSIUM DOWN WNL AND INCREASE ACTIVITY. MEDS PER OCT, HOURLY ROUNDING OBSERVBED, FALL PRECAUTIONS IN PLACE, CALL LIGHT W/IN REACH.
[2020-08-15] VITALS: BP 115/50
[2020-08-15 04:00] VITALS: BP 129/42
[2020-08-15 05:09] LABS: CREATININE 1.7 mg/dL (0.6-1.3); POTASSIUM 4.7 mmol/L (3.5-5.1)
--- NOTE | 2020-08-15 05:33 | NUR ---
ASSUMED PT CARE AT 1945. PT IS A/OX4. PT IS ON TELE MONITOR AND IS SR W/ INTERMITTENT BRADYCARDIA. PT IS ASYMPTOMATIC. PT IS ON O2 VIA NC AT 2L/MIN. PT BECOMES SOA WITH ACTIVITY. PT HAS BEEN UP WITH SBA X1 TO RESTROOM MULTIPLE TIMES DURING THE NIGHT. PT REPORTED HAVING 7 BM'S BECAUSE OF THE KAYEXALATE. PT REQUESTED IMMODIUM. MD MARKS WAS CONTACTED AND DID NOT GIVE ANY NEW ORDERS AT THIS TIME. PT UPSET ABOUT 'S RESPONSE. RN PROVIDED EDUCATION REGARDING HIGH POTASSIUM LEVELS AND THE POTENTIAL FOR CARDIAC EFFECTS. PT CALMED DOWN STATING SHE WAS JUST FRUSTRATED BUT UNDERSTANDS THE MEDICATIONS SIDE EFFECTS. PT'S LAB VALUE REVIEWED THIS AM AT 0500 AND IS WNL AT 4.7. PT IS BEING REPOSITIONED Q2H. PT PREFERS TO LAY SUPINE BUT ENCOURAGED TO RELIEVE PRESSURE FROM THE LEFT TO THE RIGHT SIDE. RENAL LABS CONTINUE TO SHOW ELEVATION. BUN 56, CREATNINE 1.7, CL 111. RN WILL REPORT LAB RESULTS TO DAY SHIFT. FALL PRECAUTIONS IN PLACE. CALL LIGHT WITHIN REACH. PT IS CURRENTLY RESTING.
[2020-08-15 08:00] VITALS: BP 130/49
[2020-08-15] MEDS ORDERED: LASIX 40 MG TAB40 MG PO (09:09)
--- NOTE | 2020-08-15 11:33 | NUR ---
CM INFORMED DURING PRIME ROUNDING OF THE PLAN OF CARE FOR THE PT. PLAN FOR PT TO POSSIBLY D/C PENDING CARDIOLOGY AND REST AND EXERCISE WITH R.T. TO DETERMINE THE NEED FOR HOME OXYGEN AT D/C. PT WILL NEED TO RESUME HH WITH [facility] AT D/C, AND THEY WILL NEED TO BE CONTACTED TO INFORM OF PT'S D/C AND D/C ORDERS FAXED WHEN AVAILABLE. CM WILL REMAIN AVAILABLE TO ASSIST AND FOLLOW NEEDED. [facility] PHONE: [phone] FAX: [phone]
[2020-08-15 12:07] VITALS: BP 159/56
--- NOTE | 2020-08-15 13:02 | NUR ---
Nutrition: Pt admitted with CHF exac. Seen for high BMI. Likely discharging soon. Wt in Jun 2020 was 350#, admit wt 350#, today's bed wt is recorded as 376# - RD questioning accuracy. Alb 3.3, BG WNL. H/o DM, CKDIII, OBE, [place]. CHO controlled diet ordered. No nutrition interventions needed at this time. Low risk.
[2020-08-15 16:59] VITALS: BP 165/60
--- NOTE | 2020-08-15 18:38 | NUR ---
ASSUMED PT CARE AT 0730, PT AOX4, NO C/O PAIN OR SHORTNESS OF BREATH. PT WORKED W/ DR AND REQUESTED TO STAY ANOTHER DAY TO CONTINUE TO DIURESE. PT EDEMA HAS DECREASED SIGNIFICANTLY IN THE LAST 2 DAYS, IT WAS ORIGINALLY NOTED UP TO THIGHS, NOW ONLY UP TO CALVES. PT DRESSING ON LLE CHANGED TODAY. PT GOAL IS TO CONTINUE TO DIURESE. MEDS PER OCT, HOURLY ROUNDING OBSERVED, FALL PRECAUTIONS IN PLACE, CALL LIGHT W/IN REACH.
[2020-08-15 20:00] VITALS: BP 153/61
[2020-08-16] VITALS (7 sets, daily range): BP systolic 112–171; BP diastolic 58–68
[2020-08-16 05:04] LABS: CALCIUM 9.2 mg/dL (8.5-10.1); CREATININE 1.4 mg/dL (0.6-1.3); POTASSIUM 4.7 mmol/L (3.5-5.1)
--- NOTE | 2020-08-16 06:48 | NUR ---
ASSUMED CARE OF PT AFTER REPORT AT 1930. PT A&OX4. VSS. PHYSICAL ASSESSMENT & COMPLETED CHARTED. PT ON O2 AY 1L NC. PT TRACING SB ON TELE. PT UP WITH 1 ASSIST TO RESTROOM. PT DENIES ANY PAIN. PT COMPLAINED OF BURNING SENSATION LEFT CHEST/BREAST WITH PAIN SCALE OF 2-3/10. PT REFUSED PAIN MEDS. EKG SHOWS SR. CALL LIGHT WITHIN REACH.
--- NOTE | 2020-08-16 08:28 | EKG ---
[place] [address] ELECTROCARDIOGRAM REPORT Name: ELIZABETH LYNN Room: [place] [address] ADM IN M.R.#: [id number] Admission: 08/12/20 Attend Phys: Bishop Glez Discharge: Date of : 54 Date of Service: 08/16/20 0511 Report #: [id number] THIS REPORT FOR: //name// [facility] Test Date: 2020-08-16 Test Time: 05:11:21 Pat Name: ELIZABETH LYNN Department: Room: [place] [address] Gender: F Complex Commercial Litigation Paralegal: MILLY : 1950 Requested By: Savannah Sanon Order Number: [id number] Reading MD: Wale Thomas Measurements Intervals [place] Rate: 51 P: 66 IL: 220 QRS: -4 QRSD: 101 T: 4 QT: 427 QTc: 394 Interpretive Statements Sinus bradycardia Prolonged IL interval Borderline low voltage, extremity leads Consider anterior infarct Compared to ECG 08/12/2020 14:53:07 First degree AV block now present Right-axis deviation no longer present Electronically Signed On 08-16-2020 8:28:06 CLINICAL MATERIAL HANDLER by Wale Thomas [email or web address] <ELECTRONICALLY SIGNED> By: Wale Thomas MD, [facility] 08/16/2028 0 0 Wale Thomas MD, [facility] /EPI
--- NOTE | 2020-08-16 14:39 | NUR ---
cm faxed orders to [facility] [phone].
--- NOTE | 2020-08-16 16:40 | NUR ---
cm confirmed w/lewis from [facility], o2 will be delivered to pt at hospital. pt rn, elmer, notified and will have tech from 2E chart picker o2 at front desk coordinator.
--- NOTE | 2020-08-16 18:11 | NUR ---
PT DISCHARGED TO HOME WITH HOME HEALTH. IV OUT. PT STABLE. HOME O2 TANK ARRIVED AND SENT WITH PT. PT BELONGINS SENT WITH PT.
== END 2020-08-16 18:13 | disposition home health service (06) | DRG 291 ==
LOC: M.ERS 14:40 → M.TBA-ER 16:03 → M.2W 08-13 08:11
PROVIDERS: Family Medicine; Internal Medicine Cardiovascular Disease; ADMIT Internal Medicine; ATTEND Internal Medicine
DX: I13.0 Hypertensive heart and chronic kidney disease with heart failure and stage 1 through stage 4 chronic kidney disease, or unspecified chronic kidney disease (principal); I50.41 Acute combined systolic (congestive) and diastolic (congestive) heart failure; J96.21 Acute and chronic respiratory failure with hypoxia; J44.1 Chronic obstructive pulmonary disease with (acute) exacerbation; D68.59 Other primary thrombophilia; Z68.43 Body mass index [BMI] 50.0-59.9, adult; Z20.822 Contact with and (suspected) exposure to COVID-19; N18.30 Chronic kidney disease, stage 3 unspecified; E78.5 Hyperlipidemia, unspecified; M10.9 Gout, unspecified; M19.90 Unspecified osteoarthritis, unspecified site; E11.22 Type 2 diabetes mellitus with diabetic chronic kidney disease; E66.9 Obesity, unspecified; G47.33 Obstructive sleep apnea (adult) (pediatric); I89.0 Lymphedema, not elsewhere classified; I48.91 Unspecified atrial fibrillation; Z89.429 Acquired absence of other toe(s), unspecified side; Z98.49 Cataract extraction status, unspecified eye; Z82.49 Family history of ischemic heart disease and other diseases of the circulatory system; Z79.899 Other long term (current) drug therapy

== ENCOUNTER → 2021-02-05 | Outpatient (CLI) | payer MEDICARE, BC ==
[~2021-02-05] MED LIST changes: +LASIX 40 MG TAB40 MG PO; +NOVOLOG100 UNIT/1 SUBQ; +SPIRONOLACTONE50 MG PO
== END ==
LOC: M.RAD 01-03 10:38
PROVIDERS: ATTEND Internal Medicine
DX: Z12.31 Encounter for screening mammogram for malignant neoplasm of breast (principal); Z13.820 Encounter for screening for osteoporosis; Z78.0 Asymptomatic menopausal state; I48.0 Paroxysmal atrial fibrillation; I10 Essential (primary) hypertension; Z79.899 Other long term (current) drug therapy; I51.7 Cardiomegaly

== ENCOUNTER → 2021-03-27 | Outpatient (CLI) | payer MEDICARE, BC ==
[2021-03-27] VITALS (7 sets, daily range): BP systolic 82–114; BP diastolic 38–49
[~2021-03-27] MED LIST changes: -CALCITRATE200 MG PO; +CALCITRIOL0.25 MCG PO; +CALCIUM CITRAT200 MG PO; +FISH OIL 1,0001 EAC9 PO; +FLECAINIDE ACET50 M2 PO; +FUROSEMIDE 20 M20 MG PO; +GLUCOSAMINE-CH1 EA34 PO; +LIPITOR40 MG PO; +NIACIN 500 MG500 MG PO; +SIMBRINZA 1%-0.28 ML EA. EYE; +TURMERIC500 M2 PO; +XALATAN2.5 ML OPHTHALMIC
[2021-03-27 09:14] LABS: HEMATOCRIT 35.5 % (37.0-47.0); HEMOGLOBIN 11.1 gm/dL (12.0-15.0); MCHC 31.2 g/dL (28.0-37.0); MCV 89.9 fL (80.0-100.0); MPV 9.2 fl. (7.2-11.1); RBC 3.95 mil/uL (4.20-5.00); RDW-CV 17.4 % (10.5-14.5); WBC 7.1 thou/uL (4.0-11.0)
[2021-03-27 09:25] LABS: APTT 28.6 Seconds (25.0-31.3); INR 1.1; PROTIME 12.1 Seconds (9.20-11.50)
[2021-03-27 09:27] LABS: ALBUMIN 3.3 g/dL (3.4-5.0); TOTAL BILIRUBIN 0.7 mg/dL (<0.1-1.0); TOTAL PROTEIN 7.8 g/dL (6.4-8.2)
[2021-03-27 09:58] LABS: CREATININE 1.9 mg/dL (0.6-1.3); POTASSIUM 4.9 mmol/L (3.5-5.1)
--- NOTE | 2021-03-27 10:16 | EKG ---
[place] [address] ELECTROCARDIOGRAM REPORT Name: ELIZABETH LYNN Room: [facility]#: [id number] Admission: 03/27/21 Attend Phys: Janis Tam RN Discharge: Date of : 54 Date of Service: 03/27/[address] Report #: [id number] THIS REPORT FOR: //name// [facility] Test Date: 2021-03-27 Test Time: 09:11:55 Pat Name: ELIZABETH LYNN Department: Room: Gender: F Simulation Tech: BELGICA : 1950 Requested By: Piero Corley Order Number: [id number] Reading MD: Wale Thomas Measurements Intervals [place] Rate: 75 P: MN: QRS: 27 QRSD: 95 T: 77 QT: 422 QTc: 472 Interpretive Statements Atrial fibrillation Borderline repolarization abnormality Borderline prolonged QT interval Compared to ECG 08/16/2020 05:11:21 ST (T wave) deviation now present Sinus bradycardia no longer present Electronically Signed On 03-27-2021 10:16:33 CDT by Wale Thomas [email or web address] <ELECTRONICALLY SIGNED> By: Wale Thomas MD, FAC 03/27/21 1016 0911 0911 Wale Thomas MD, [facility] /EPI
--- NOTE | 2021-03-29 10:28 | CARD ---
[place] [address] CARDIAC CATH REPORT Name: LYNNELIZABETH Shaffer Room: [facility]#: [id number] Admission: 03/27/21 Attend Phys: CHIQUITA Alex Discharge: Date of : 54 Report #: [id number] THIS REPORT FOR: cc: Lien Eagle MD, Diane S. MD Liston, Michael J. MD [facility] ~ cc: Lien Eagle MD DATE OF SERVICE: 03/27/2021 PROCEDURE: Direct current cardioversion. INDICATION: Persistent atrial fibrillation. DESCRIPTION OF PROCEDURE: After the patient was brought to the cardiac holding area, informed consent was obtained. The patient was given 75 mg of intravenous fentanyl and 3 mg of intravenous Versed for conscious sedation. Once the patient was adequately sedated, she received a single biphasic shock of 300 joules converting from atrial fibrillation to normal sinus rhythm. The patient tolerated the procedure well without complication. The patient was discharged uneventfully. IMPRESSION: 1. Persistent atrial fibrillation. 2. Successful direct current cardioversion to normal sinus rhythm. <ELECTRONICALLY SIGNED> By: Piero Corley MD, [facility] 03/29/21 1028 1406 T: 08/1853Michael Demi Corley MD, FACC /nt
== END | disposition home or self-care (01) ==
LOC: M.ULTRA 07:58 → M.CL 07:58 → M.ULTRA 08:00
PROVIDERS: Internal Medicine Cardiovascular Disease; ATTEND Registered Nurse
DX: I48.19 Other persistent atrial fibrillation (principal); R09.89 Other specified symptoms and signs involving the circulatory and respiratory systems; I11.0 Hypertensive heart disease with heart failure; I50.9 Heart failure, unspecified; I25.2 Old myocardial infarction; E11.9 Type 2 diabetes mellitus without complications; G47.33 Obstructive sleep apnea (adult) (pediatric); Z98.890 Other specified postprocedural states; Z79.899 Other long term (current) drug therapy; Z79.01 Long term (current) use of anticoagulants

== ENCOUNTER → 2021-05-07 | Outpatient (CLI) | payer MEDICARE, BC ==
--- NOTE | 2021-05-07 11:11 | 2DMMODE ---
[place] [address] 2 D/M-MODE ECHOCARDIOGRAM Name: ELIZABETH LYNN Room: [facility]#: [id number] Admission: 05/07/21 Attend Phys: Khloe Lee, Discharge: Date of : 54 Date of Service: 05/07/21 1111 Report #: [id number] THIS REPORT FOR: cc: Lien Eagle MD, Diane S. MD Blick, David R. MD [facility] ~ APPROVED REPORT Study performed: 05/07/2021 08:16:38 EXAM: Comprehensive 2D, Doppler, and color-flow Echocardiogram Patient Location: Out-Patient BSA: 2.57 HR: 75 bpm BP: 169/71 mmHg Other Information Study Quality: Good Indications Atrial Fibrillation 2D Dimensions IVSd: 11.64 (7-11mm) LVOT Diam: 20.03 (18-24mm) LVDd: 52.66 mm PWd: 9.99 (7-11mm) Ascending Ao: 32.80 (22-36mm) LVDs: 37.42 (25-40mm) Aortic Root: 31.21 mm Volumes Left Atrial Volume (Systole) LA ESV Index: 22.80 mL/m2 Aortic Valve AoV Peak Saji.: 1.77 m/s AO Peak Gr.: 12.56 mmHg LVOT Max P.49 mmHg AO Mean Gr.: 6.14 mmHg LVOT Mean P.51 mmHg LVOT Max V: 0.93 m/s AO V2 VTI: 42.83 cm LVOT Mean V: 0.55 m/s DANELLE (VTI): 1.75 cm2 LVOT V1 VTI: 23.84 cm Mitral Valve E/A Ratio: 1.45 [place] [address] 2 D/M-MODE ECHOCARDIOGRAM Name: ELIZABETH LYNN Room: [facility]#: [id number] Admission: 05/07/21 Attend Phys: Khloe Lee, Discharge: Date of : 54 Date of Service: 05/07/21 1111 Report #: [id number] MV Decel. Time: 190.62 ms MV E Max Saji.: 1.23 m/s MV PHT: 55.28 ms MVA (PHT): 3.98 cm2 TDI E/Lateral E': 11.18 E/Medial E': 13.67 Medial E' Saji.: 0.09 m/s Lateral E' Saji.: 0.11 m/s Pulmonary Valve PV Peak Saji.: 1.14 m/s PV Peak Gr.: 5.17 mmHg Tricuspid Valve RAP Estimate: 5.00 mmHg TR Peak Gr.: 51.84 mmHg RVSP: 56.84 mmHg PA Pressure: 56.84 mmHg Left Ventricle The left ventricle is normal size. There is normal LV segmental wall motion. There is normal left ventricular wall thickness. Left ventricular systolic function is normal. The left ventricular ejection fraction is within the normal range. LVEF is 55-60%. The left ventricular diastolic function is normal. Right Ventricle The right ventricle is normal size. The right ventricular systolic function is normal. Atria The left atrium size is normal. The right atrium size is normal. Aortic Valve The Aortic valve is sclerotic. No aortic regurgitation is present. There is no aortic valvular stenosis. Mitral Valve The mitral valve is normal in structure. Mild mitral regurgitation. No evidence of mitral valve stenosis. Tricuspid Valve The tricuspid valve is normal in structure. Moderate tricuspid regurgitation. estimated pa pressure 60 [place] [address] 2 D/M-MODE ECHOCARDIOGRAM Name: ELIZABETH LYNN Room: [facility]#: [id number] Admission: 05/07/21 Attend Phys: Khloe Lee, Discharge: Date of : 54 Date of Service: 05/07/21 1111 Report #: [id number] Pulmonic valve is not well visualized. Mild pulmonic regurgitation. Great Vessels The aortic root is normal in size. IVC is normal in size and collapses >50% with inspiration. Pericardium There is no pericardial effusion. <Conclusion> LVEF is 55-60%. The Aortic valve is sclerotic. Mild mitral regurgitation. Moderate tricuspid regurgitation. estimated pa pressure 60 mm Hg <ELECTRONICALLY SIGNED> By: Wale Thomas MD, FACC 05/07/21 1111 1111 1111 Wale Thomas MD, FACC /INF
== END ==
LOC: M.CRD 07:51
PROVIDERS: ATTEND Nurse Practitioner
DX: I08.8 Other rheumatic multiple valve diseases (principal); I48.0 Paroxysmal atrial fibrillation

== ENCOUNTER → 2021-06-25 | Outpatient (CLI) | payer MEDICARE, BC | LOC: M.RAD 10:17 | PROVIDERS: ATTEND Internal Medicine | DX: R06.02 Shortness of breath (principal) ==